=== PATIENT | male | born 1985 | race Caucasian/White ===

== ENCOUNTER 2018-10-15 21:10 | Emergency (ER) | payer OTHER ==
[2018-10-15 21:25] VITALS: BP 142/79
--- NOTE | 2018-10-15 21:50 | UC ---
Lower Extremity/Ankle HPI - HPI Summary HPI Summary: 33-year-old male with a chief complaint of right hip and leg pain. Patient reports he fell about a month ago when during that time is gradually been getting increasing pain in the right buttock and hip goes away down to his right great toe. Pains worse with activity twisting turning bending and weightbearing he has been taking acetaminophen for the pain. This does help with the pain. However listening to him it's apparent that he is taking an excessive amount of acetaminophen. He has no jaundice. He does have history of hepatitis C. He's had heart attacks and bypass is any is on Plavix. He is also on Suboxone. No difficulty controlling urine or bowels. He is a lot of pain with movement and therefore he does not use leg is much but by history it sounds like the pain is with keeping him from moving and not true weakness. - History of Current Complaint Chief Complaint: UCLowerExtremity Stated Complaint: RT HIP COMPLAINT Time Seen by Provider: 10/15/18 21:35 Pain Intensity: 4 - Allergies/Home Medications Allergies/Adverse Reactions: Allergies Allergy/AdvReac Type Severity Reaction Status Date / Time meloxicam Allergy Hives/Diff. Verified 10/15/18 21:25 Breathing/I tching Home Medications: Home Medications Acetaminophen TAB* [Tylenol TAB*] 3,000 mg PO BID 10/15/18 [History Confirmed ] Albuterol HFA INHALER* [Ventolin HFA Inhaler*] 2 puff INH Q6H PRN 10/15/18 [ History Confirmed 10/15/18] Aspirin 81 mg CHEW TAB* [Aspirin Low Dose TAB*] 81 mg PO DAILY 10/15/18 [ History Confirmed 10/15/18] Buprenorp/Nalox 8-2 MG SL TAB [Suboxone 8-2 mg SL TAB*] 3 tab.sl SL DAILY [History Confirmed 10/15/18] Carvedilol TAB* [Coreg TAB*] 6.25 mg PO BID 10/15/18 [History Confirmed 10/15/18 ] Clopidogrel TAB* [Plavix TAB*] 75 mg PO DAILY 10/15/18 [History Confirmed ] Escitalopram * [Lexapro 10 mg (NF)] 10 mg PO DAILY 10/15/18 [History Confirmed 10/15/18] Ezetimibe TAB* [Zetia TAB*] 10 mg PO DAILY 10/15/18 [History Confirmed 10/15/18] Furosemide TAB* [Lasix TAB*] 20 mg PO DAILY 10/15/18 [History Confirmed 10/15/18 ] buPROPion HCl [Wellbutrin Sr] 300 mg PO DAILY 10/15/18 [History Confirmed ] traZODone TAB* [Desyrel TAB*] 100 mg PO BEDTIME PRN 10/15/18 [History Confirmed 10/15/18] PMH/Surg Hx/FS Hx/Imm Hx Previously Healthy: Yes Cardiovascular History: Myocardial Infarction - Surgical History Surgical History: Yes Surgery Procedure, Year, and Place: heart, appy, defib. - Family History Known Family History: Positive: Non-Contributory - Social History Alcohol Use: Rare Substance Use Type: Marijuana Substance Use Comment - Amount & Last Used: daily Smoking Status (MU): Light Every Day Tobacco Smoker Review of Systems All Other Systems Reviewed And Are Negative: Yes Constitutional: Positive: Negative Skin: Positive: Negative Eyes: Positive: Negative ENT: Positive: Negative Respiratory: Positive: Negative Cardiovascular: Positive: Negative Gastrointestinal: Positive: Negative Genitourinary: Positive: Negative Motor: Positive: Negative Neurovascular: Positive: Negative Musculoskeletal: Positive: Other: - SEE HPI Neurological: Positive: Negative Psychological: Positive: Negative Is Patient Immunocompromised?: No Physical Exam Triage Information Reviewed: Yes Appearance: Well-Appearing, Well-Nourished, Pain Distress - MILD WITH ROM Vital Signs: Initial Vital Signs Temp 98.1 F 10/15/18 21:18 Pulse 95 10/15/18 21:18 Resp 18 10/15/18 21:18 BP 142/79 10/15/18 21:18 Pulse Ox 98 10/15/18 21:18 Vital Signs Reviewed: Yes Eye Exam: Normal Eyes: Positive: Conjunctiva Clear Neck exam: Normal Neck: Positive: Supple Respiratory: Positive: No respiratory distress Musculoskeletal: Positive: Other: - Patient is tender to palpation in the right buttock patient is tender to palpation in the sciatic distribution. No sensation deficit in the lower extremities. Normal capillary refill. Plantarflexion and dorsiflexion knee flexion and extension are all full strength. Patellar reflexes flexes 2+ bilaterally. Right hip flexion does increase the pain in the buttock. Neurological: Positive: Alert, Muscle Tone Normal Psychological Exam: Normal Psychological: Positive: Age Appropriate Behavior Skin Exam: Normal Lower Extremity Course/Dx - Course Course Of Treatment: Patient's symptoms are consistent with sciatica. He was nontender in the back. Because the patient is on Plavix he cannot take nonsteroidal anti- inflammatories. I discussed with him to not take acetaminophen beyond the recommended dosage. Because he has been taking excessive amounts of acetaminophen, I am concerned about the possibility of acetaminophen overdose. I recommended to the patient that he go directly to the emergency department for further evaluation of possible acetaminophen overdose and treatment if necessary. I spoke with the [place] emergency department physician Dr. Haywood about the case. Patient did say that he would get this evaluated. No focal neurologic deficit here on examination or by history. I let the patient know that if he did end up with any weakness or difficulty with urine or bowel he needs to get reevaluated right away. Otherwise were given crutches to help decrease weightbearing and having follow-up with sports medicine for further evaluation and treatment. - Differential Dx/Diagnosis Provider Diagnosis: Right sided sciatica, Acetaminophen abuse Discharge - Sign-Out/Discharge Documenting (check all that apply): Patient Departure All imaging exams completed and their final reports reviewed: No Studies - Discharge Plan Condition: Stable Disposition: HOME Patient Education Materials: Crutch Instructions (ED), Sciatica (ED), Acetaminophen Overdose (ED) Referrals: [facility] [Provider Group] Additional Instructions: GO DIRECTLY TO THE EMERGENCY DEPARTMENT FOR FURTHER EVALUATION OF YOUR ACETAMINOPHEN OVER DOSING. FOLLOW UP WITH SPORTS MEDICINE. TAKE ACETAMINOPHEN DIRECTED. TAKING MORE THAN DIRECTED OR AN OVERDOSE OF ACETAMINOPHEN CAN DAMAGE YOUR LIVER AND KILL YOU. GET REEVALUATED SOONER IF YOUR CONDITION WORSENS; WEAKNESS, NUMBNESS, DIFFICULTY CONTROLLING BOWEL OR BLADDER OR ANY QUESTIONS OR CONCERNS. - Billing Disposition and Condition Condition: STABLE Disposition: Home
== END 2018-10-15 22:11 | disposition home or self-care (01) ==
LOC: UCCORT 21:10
DX: M54.31 Sciatica, right side (principal); I25.2 Old myocardial infarction; Z95.1 Presence of aortocoronary bypass graft; Z79.01 Long term (current) use of anticoagulants; F17.210 Nicotine dependence, cigarettes, uncomplicated
CPT/HCPCS: 99213; G0463